=== PATIENT | female | born 1975 | race African-American/Black ===

== ENCOUNTER 2017-08-10 20:41 | Emergency (ER) | payer OTHER ==
--- NOTE | 2017-08-10 22:05 | PDOC ---
History of Present Illness - General Chief Complaint: Pain, Acute Stated Complaint: LEFT THIGH PAIN Time Seen by Provider: 08/10/17 20:45 - History of Present Illness Initial Comments: This 42-year-old woman without significant past medical history is referred here by urgent care center with left thigh pain for several hours. The patient states that she had mild discomfort in the anterior proximal left thigh yesterday. Today, she had development of brief episodes of sharp pain in this specific area of her anterior left thigh: These episodes last seconds and resolves spontaneously. They are located in the proximal third mid anterior aspect of the thigh. No previous history of injury or overuse involving her thighs. She has not had any wound or rash in the area. No previous history of this type of pain. She was given 600 mg of ibuprofen at the urgent care center and sent here for further evaluation. Patient has no risk factors for DVT/PE. Past History - Past Medical History Allergies/Adverse Reactions: Allergies Allergy/AdvReac Type Severity Reaction Status Date / Time No Known Allergies Allergy Verified 08/10/17 22:45 Home Medications: Ambulatory Orders Ibuprofen [Motrin -] 600 mg PO TID PRN #20 tablet 08/10/17 Review of Systems - Review of Systems Able to Perform ROS?: Yes Comments:: 12 point review of systems is negative except for what is noted in the history of present illness *Physical Exam - Physical Exam Comments: GENERAL: Adult female, alert and oriented 3, in no acute distress EXTREMITIES: Left lower extremity-nontender, slightly warm to touch, non erythematous area , 2 cm x 7 cm midanterior thigh just distal to inguinal lig No rash/no masses/ no pulsations/no open wound/no fluctuance Remainder of extremity exam is normal NEUROLOGICAL: Cranial nerves II through XII grossly intact. Normal speech. No focal neurological deficits. MUSCULOSKELETAL: Back non-tender to palpation, no CVA tenderness SKIN: Warm, Dry, normal turgor, no rashes or lesions noted. Medical Decision Making - Medical Decision Making Doppler duplex study of the left lower extremity negative for DVT or other abnormalities. The patient reports that she had initial relief of the intermittent episodes of pain after 600 mg ibuprofen administered at approximately 6 PM at the urgent care center. Workup reveals no DVT or other significant abnormalities. Although this could be early cellulitis, there is no wound or significant evidence of edema/erythema /tenderness to warrant antibiotic use at this time. Possible early zoster but no rash present Additional 600 mg ibuprofen will be given by mouth prior to patient's discharge. Meanwhile, she should return to ER if the area becomes erythematous/ swollen or more painful or if she develops fever. She should plan to follow up with her PMD on August 13 *DC/Admit/Observation/Transfer Diagnosis at time of Disposition: Left thigh pain - Discharge Dispostion Disposition: HOME Condition at time of disposition: Stable - Prescriptions Prescriptions: Ibuprofen [Motrin -] 600 mg PO TID PRN #20 tablet PRN Reason: Moderate Pain - Referrals Referrals: Deanna Llamas MD [Primary Care Provider] - - Patient Instructions Printed Discharge Instructions: DI for Leg Pain Additional Instructions: Avoid wearing garments that compress upper portion of thigh Motrin 600 mg 3 times a day as needed; take with food Follow-up with your PCP on August 13 Also consider follow-up with neurologist (Dr. Wagoner) if discomfort persists Return to ER if area becomes more swollen/red/warm to touch or 100 develop fever - Post Discharge Activity
[2017-08-10 22:52] VITALS: BP 180/107; PULSE 83; TEMP 98.6; BMI 29.0
[2017-08-10] MEDS ORDERED: IBUPROFEN 600 MG TABLET (FP) PO ONE ×2 (23:35→23:37)
== END 2017-08-10 23:44 | disposition home or self-care (01) ==
LOC: FER 20:41
DX: M79.605 Pain in left leg (principal)
CPT/HCPCS: 93971-TC; 99282-25